=== PATIENT | female | born 1980 | race Caucasian/White ===

== ENCOUNTER 2023-01-29 16:36 | Emergency (ER) | payer SELFPAY ==
[2023-01-29 16:44] VITALS: BP 154/85; PULSE 76; RESP 18; TEMP 98.5; BMI 25.7
[2023-01-29] MEDS ORDERED: KETOROLAC TROMETHAMINE 30 MG/1 ML VIAL IM ONE (17:03)
[2023-01-29] MEDS ORDERED: METHOCARBAMOL 500 MG TABLET PO ONE (17:03)
[2023-01-29] MEDS ORDERED: METHOCARBAMOL 500 MG TABLET ONE (17:06)
[2023-01-29] MEDS ORDERED: KETOROLAC TROMETHAMINE 30 MG/1 ML VIAL ONE (17:06)
[2023-01-29 17:37] LABS: PH,URINE 7.5 (5.0-8.0); URINE APPEARANCE CLEAR; URINE BILIRUBIN NEGATIVE (NEGATIVE); URINE COLOR YELLOW; URINE GLUCOSE (UA) NEGATIVE (NEGATIVE); URINE KETONE NEGATIVE (NEGATIVE); URINE LEUK ESTERASE NEGATIVE (NEGATIVE); URINE NITRITE NEGATIVE (NEGATIVE); URINE PROTEIN NEGATIVE (NEGATIVE); URINE UROBILINOGEN 0.2 mg/dL (0.2-1.0)
[2023-01-29 17:39] LABS: HCG,QUALITATIVE URINE Negative
== END 2023-01-29 18:26 | disposition home or self-care (01) ==
LOC: JERFT 16:36
PROC: 3E0233Z Introduction of Anti-inflammatory into Muscle, Percutaneous Approach (ICD-10-PCS; principal; 2023-01-29)
DX: R10.2 Pelvic and perineal pain (principal); M79.662 Pain in left lower leg; M25.552 Pain in left hip
CPT/HCPCS: 72170-TC-FY; 81003; 84703; 99284-25